=== PATIENT | female | born 1935 | race Caucasian/White ===

== ENCOUNTER 2021-12-31 17:00 | Inpatient (IN) | payer OTHER, BC ==
[2021-12-31] MEDS ORDERED: ACETAMINOPHEN 1000 MG/100 ML BAG IVPB ONE (17:44)
[2021-12-31] MEDS ORDERED: ACETAMINOPHEN INJECTION 100 ML IVPB ONE (18:12)
[2021-12-31] MEDS ORDERED: DEXAMETHASONE SOD PHOSPHATE 4 MG/1 ML VIAL IVPUSH ONE (18:51)
[2021-12-31 19:19] LABS: VENOUS BASE EXCESS 0.8 mmol/L (-2-2); VENOUS O2 SATURATION 80.8 % (70-80); VENOUS PCO2 40.6 mmHg (38-52); VENOUS PH 7.414 (7.310-7.410)
[2021-12-31 19:21] LABS: EPI CELLS 27 /uL (0-25.1); HYALINE CASTS 1 /uL (0-3.1); PH,URINE 6.5 (5.0-8.0); URINE APPEARANCE CLEAR; URINE BACTERIA 41 /uL (0-1359); URINE BILIRUBIN NEGATIVE (NEGATIVE); URINE COLOR YELLOW; URINE GLUCOSE (UA) NEGATIVE (NEGATIVE); URINE KETONE NEGATIVE (NEGATIVE); URINE LEUK ESTERASE NEGATIVE (NEGATIVE); URINE NITRITE NEGATIVE (NEGATIVE); URINE PROTEIN 2+ (NEGATIVE); URINE RBC 136 /uL (0-23.9); URINE WBC 21 /uL (0-25.8)
[2021-12-31 19:22] LABS: BASO % 0.3 % (0-2.0); HEMATOCRIT 44.3 % (32.4-45.2); HEMOGLOBIN 14.8 GM/dL (10.7-15.3); INR 1.6 (0.83-1.09); LYMPH % 14.2 % (8-40); MCH 30.3 pg (25.7-33.7); MCHC 33.4 g/dl (32.0-36.0); MEAN CELL VOLUME 90.7 fl (80-96); MEAN PLT VOLUME 8.4 fl (7.5-11.1); MONO % 13.9 % (3.8-10.2); NEUT % 71.6 % (42.8-82.8); PLATELET COUNT 133 10^3/uL (134-434); PROTHROMBIN TIME (PATIENT) 18.5 SEC (9.7-13.0); RBC 4.89 M/mm3 (3.60-5.2); RDW 14.4 % (11.6-15.6); WHITE BLOOD COUNT 4.2 K/mm3 (4.0-10.0)
[2021-12-31] MEDS ORDERED: DEXAMETHASONE SOD PHOSPHATE 10 MG/1 ML VIAL ONE (19:24)
[2021-12-31 19:25] LABS: ACTIVATED PTT 39.5 SECONDS (25.2-36.5)
[2021-12-31 19:36] LABS: CALCIUM 8.3 mg/dL (8.5-10.1)
[2021-12-31 19:37] LABS: ALBUMIN 3.5 g/dl (3.4-5.0); BLOOD UREA NITROGEN 20.6 mg/dL (7-18)
[2021-12-31 19:39] LABS: BILIRUBIN,DIRECT 0.2 mg/dL (0.0-0.2)
[2021-12-31 19:40] LABS: CREATININE 0.7 mg/dL (0.55-1.3)
[2021-12-31 19:41] LABS: BILIRUBIN,TOTAL 0.6 mg/dL (0.2-1); TOT PROT 7.8 g/dl (6.4-8.2)
[2021-12-31 21:04] LABS: MAGNESIUM 2.5 mg/dL (1.8-2.4)
[2021-12-31 21:35] LABS: ARTERIAL BLD GAS O2 SATURATION 97.9 % (95-98); ARTERIAL BLOOD GAS BASE EXCESS 0.6 mmol/L (-2-2); ARTERIAL BLOOD GAS PO2 110.6 mmHg (80-100); ARTERIAL BLOOD GAS pH 7.366 (7.350-7.450)
[2021-12-31 21:36] LABS: ALLENS TEST POSITIVE
[2022-01-01 08:15] LABS: BASO % 0.1 % (0-2.0); HEMATOCRIT 48.6 % (32.4-45.2); HEMOGLOBIN 16.2 GM/dL (10.7-15.3); MCH 30.4 pg (25.7-33.7); MCHC 33.3 g/dl (32.0-36.0); MEAN CELL VOLUME 91.3 fl (80-96); MEAN PLT VOLUME 8.3 fl (7.5-11.1); MONO % 9.9 % (3.8-10.2); PLATELET COUNT 119 10^3/uL (134-434); RBC 5.33 M/mm3 (3.60-5.2); WHITE BLOOD COUNT 8.5 K/mm3 (4.0-10.0)
[2022-01-01 08:31] LABS: BLOOD UREA NITROGEN 20.8 mg/dL (7-18); CALCIUM 8.9 mg/dL (8.5-10.1)
[2022-01-01 08:32] LABS: ALBUMIN 3.5 g/dl (3.4-5.0)
[2022-01-01 08:35] LABS: CREATININE 0.7 mg/dL (0.55-1.3)
[2022-01-01 08:37] LABS: BILIRUBIN,TOTAL 0.6 mg/dL (0.2-1)
[2022-01-01] MEDS ORDERED: DEXAMETHASONE SOD PHOSPHATE 10 MG/1 ML VIAL ONE (09:05)
[2022-01-01] MEDS ORDERED: ENOXAPARIN NA (PORCINE) 40 MG/0.4 ML DISP.SYRIN SQ ONE (09:06)
[2022-01-01] MEDS: DEXAMETHASONE SOD PHOSPHATE 10 MG/1 ML VIAL IVPUSH SCH (09:40)
[2022-01-01] MEDS: D5-1/2NS+10 MEQ KCL - 10 MEQ/1,000 ML INFUS.BAG IV SCH ×2 (09:40→21:58)
[2022-01-01] MEDS: ENOXAPARIN NA (PORCINE) 40 MG/0.4 ML DISP.SYRIN SQ SCH (09:40)
[2022-01-01] MEDS: ASCORBIC ACID 500 MG TABLET (FP) PO SCH ×2 (09:41→21:58)
[2022-01-01] MEDS: CHOLECALCIFEROL (VIT D3) 1,000 UNIT (25 MCG) TABLET PO SCH (09:41)
[2022-01-01] MEDS ORDERED: REMDESIVIR 200 MG in SODIUM CHLORIDE 250 ML IVPB ONE (10:00)
[2022-01-01] MEDS ORDERED: WARFARIN NA 2 MG TABLET PO SCH (18:00)
[2022-01-02] MEDS: D5-1/2NS+10 MEQ KCL - 10 MEQ/1,000 ML INFUS.BAG IV SCH ×3 (10:59→13:50)
[2022-01-02] MEDS: DEXAMETHASONE SOD PHOSPHATE 10 MG/1 ML VIAL IVPUSH SCH (11:00)
[2022-01-02] MEDS: ASCORBIC ACID 500 MG TABLET (FP) PO SCH ×2 (11:01→21:16)
[2022-01-02] MEDS: ENOXAPARIN NA (PORCINE) 40 MG/0.4 ML DISP.SYRIN SQ SCH (11:01)
[2022-01-02] MEDS: CHOLECALCIFEROL (VIT D3) 1,000 UNIT (25 MCG) TABLET PO SCH (11:01)
[2022-01-02] MEDS: REMDESIVIR 100 MG in SODIUM CHLORIDE 250 ML IVPB SCH (11:02)
[2022-01-02 13:19] LABS: INR 2.42 (0.83-1.09); PROTHROMBIN TIME (PATIENT) 28.1 SEC (9.7-13.0)
[2022-01-02 13:25] LABS: HEMATOCRIT 45.1 % (32.4-45.2); HEMOGLOBIN 15.2 GM/dL (10.7-15.3); MCH 30.2 pg (25.7-33.7); MCHC 33.7 g/dl (32.0-36.0); MEAN CELL VOLUME 89.7 fl (80-96); MEAN PLT VOLUME 8.1 fl (7.5-11.1); PLATELET COUNT 116 10^3/uL (134-434); RBC 5.03 M/mm3 (3.60-5.2); RDW 13.9 % (11.6-15.6); WHITE BLOOD COUNT 3.9 K/mm3 (4.0-10.0)
[2022-01-02 13:54] LABS: CALCIUM 8.3 mg/dL (8.5-10.1)
[2022-01-02 13:55] LABS: BLOOD UREA NITROGEN 18.1 mg/dL (7-18)
[2022-01-02 13:58] LABS: CREATININE 0.7 mg/dL (0.55-1.3)
[2022-01-02 13:59] LABS: BILIRUBIN,TOTAL 0.5 mg/dL (0.2-1); TOT PROT 7.2 g/dl (6.4-8.2)
[2022-01-02] MEDS ORDERED: WARFARIN NA 1 MG TABLET PO SCH (18:00)
[2022-01-03] MEDS: D5-1/2NS+10 MEQ KCL - 10 MEQ/1,000 ML INFUS.BAG IV SCH ×4 (01:06→22:59)
[2022-01-03] MEDS: PIPERACILLIN/TAZOB 3.375 GM 3.375 GM in DEXTROSE 5%-WATER - 50 ML IVPB SCH ×2 (02:30→18:19)
[2022-01-03] MEDS ORDERED: ACETAMINOPHEN 325 MG TABLET (FP) PO PRN (08:35)
[2022-01-03] MEDS ORDERED: ACETAMINOPHEN 650 MG SUPP.RECT RC ONE (09:30)
[2022-01-03 11:02] LABS: INR 2.74 (0.83-1.09); PROTHROMBIN TIME (PATIENT) 31.8 SEC (9.7-13.0)
[2022-01-03] MEDS: REMDESIVIR 100 MG in SODIUM CHLORIDE 250 ML IVPB SCH (11:12)
[2022-01-03] MEDS: DEXAMETHASONE SOD PHOSPHATE 10 MG/1 ML VIAL IVPUSH SCH (11:14)
[2022-01-03] MEDS: ENOXAPARIN NA (PORCINE) 40 MG/0.4 ML DISP.SYRIN SQ SCH (12:45)
[2022-01-03] MEDS: ASCORBIC ACID 500 MG TABLET (FP) PO SCH ×2 (12:45→22:06)
[2022-01-03] MEDS: CHOLECALCIFEROL (VIT D3) 1,000 UNIT (25 MCG) TABLET PO SCH (12:46)
[2022-01-03 13:23] LABS: HEMATOCRIT 43.5 % (32.4-45.2); HEMOGLOBIN 14.8 GM/dL (10.7-15.3); LYMPH % 10.9 % (8-40); MCH 30.2 pg (25.7-33.7); MEAN PLT VOLUME 8.4 fl (7.5-11.1); MONO % 7.7 % (3.8-10.2); NEUT % 81.4 % (42.8-82.8); PLATELET COUNT 120 10^3/uL (134-434); RBC 4.89 M/mm3 (3.60-5.2); RDW 13.8 % (11.6-15.6); WHITE BLOOD COUNT 5.4 K/mm3 (4.0-10.0)
[2022-01-03 13:44] LABS: ALBUMIN 2.5 g/dl (3.4-5.0); CALCIUM 8.1 mg/dL (8.5-10.1)
[2022-01-03 13:45] LABS: BLOOD UREA NITROGEN 20.7 mg/dL (7-18)
[2022-01-03 13:47] LABS: CREATININE 0.7 mg/dL (0.55-1.3)
[2022-01-03 13:49] LABS: BILIRUBIN,TOTAL 0.6 mg/dL (0.2-1); TOT PROT 6.2 g/dl (6.4-8.2)
[2022-01-03] MEDS ORDERED: DEXTROSE 5%-WATER - 50 ML IVPB ONE ×2 (14:36→17:56)
[2022-01-03] MEDS ORDERED: PIPERACILLIN/TAZOBACTAM 3.375 GM VIAL IVPB ONE ×2 (14:36→17:56)
[2022-01-03] MEDS ORDERED: KCL 10 MEQ IVPB 10 MEQ/100 ML INFUS.BAG IVPB SCH (15:00)
[2022-01-04] MEDS ORDERED: DEXTROSE 5%-WATER - 50 ML IVPB ONE ×3 (02:02→17:23)
[2022-01-04] MEDS ORDERED: PIPERACILLIN/TAZOBACTAM 3.375 GM VIAL IVPB ONE ×3 (02:02→17:23)
[2022-01-04] MEDS: PIPERACILLIN/TAZOB 3.375 GM 3.375 GM in DEXTROSE 5%-WATER - 50 ML IVPB SCH ×3 (03:15→17:33)
[2022-01-04] MEDS: REMDESIVIR 100 MG in SODIUM CHLORIDE 250 ML IVPB SCH (11:14)
[2022-01-04] MEDS: ENOXAPARIN NA (PORCINE) 60 MG/0.6 ML DISP.SYRIN SQ SCH ×2 (11:14→22:12)
[2022-01-04] MEDS: DEXAMETHASONE SOD PHOSPHATE 10 MG/1 ML VIAL IVPUSH SCH (11:15)
[2022-01-04] MEDS: D5-1/2NS+10 MEQ KCL - 10 MEQ/1,000 ML INFUS.BAG IV SCH (17:33)
[2022-01-05] MEDS ORDERED: DEXTROSE 5%-WATER - 50 ML IVPB ONE ×3 (01:48→18:54)
[2022-01-05] MEDS ORDERED: PIPERACILLIN/TAZOBACTAM 3.375 GM VIAL IVPB ONE ×3 (01:48→18:54)
[2022-01-05] MEDS: PIPERACILLIN/TAZOB 3.375 GM 3.375 GM in DEXTROSE 5%-WATER - 50 ML IVPB SCH ×3 (01:55→19:13)
[2022-01-05] MEDS: DEXAMETHASONE SOD PHOSPHATE 10 MG/1 ML VIAL IVPUSH SCH (09:57)
[2022-01-05] MEDS: ENOXAPARIN NA (PORCINE) 60 MG/0.6 ML DISP.SYRIN SQ SCH (09:57)
[2022-01-05] MEDS: REMDESIVIR 100 MG in SODIUM CHLORIDE 250 ML IVPB SCH (09:58)
[2022-01-05 10:54] LABS: HEMATOCRIT 48.2 % (32.4-45.2); HEMOGLOBIN 16.2 GM/dL (10.7-15.3); MCH 29.8 pg (25.7-33.7); MCHC 33.7 g/dl (32.0-36.0); MEAN CELL VOLUME 88.4 fl (80-96); MEAN PLT VOLUME 8.6 fl (7.5-11.1); PLATELET COUNT 151 10^3/uL (134-434); RBC 5.45 M/mm3 (3.60-5.2); RDW 14.2 % (11.6-15.6); WHITE BLOOD COUNT 11.5 K/mm3 (4.0-10.0)
[2022-01-05 11:02] LABS: PROTHROMBIN TIME (PATIENT) 63.4 SEC (9.7-13.0)
[2022-01-05 11:26] LABS: CALCIUM 8.9 mg/dL (8.5-10.1)
[2022-01-05 11:27] LABS: ALBUMIN 2.6 g/dl (3.4-5.0); BLOOD UREA NITROGEN 32.1 mg/dL (7-18)
[2022-01-05 11:30] LABS: CREATININE 1.3 mg/dL (0.55-1.3)
[2022-01-05 11:31] LABS: TOT PROT 6.7 g/dl (6.4-8.2)
[2022-01-05 11:32] LABS: BILIRUBIN,TOTAL 0.9 mg/dL (0.2-1)
[2022-01-05 11:34] LABS: INR 5.4 (0.83-1.09)
[2022-01-05 13:02] VITALS: BMI 17.7
[2022-01-05] MEDS: D5-1/2NS+10 MEQ KCL - 10 MEQ/1,000 ML INFUS.BAG IV SCH (19:15)
[2022-01-06] MEDS: D5-1/2NS+10 MEQ KCL - 10 MEQ/1,000 ML INFUS.BAG IV SCH (00:46)
[2022-01-06] MEDS ORDERED: DEXTROSE 5%-WATER - 50 ML IVPB ONE ×3 (03:39→17:47)
[2022-01-06] MEDS ORDERED: PIPERACILLIN/TAZOBACTAM 3.375 GM VIAL IVPB ONE ×3 (03:39→17:47)
[2022-01-06] MEDS: PIPERACILLIN/TAZOB 3.375 GM 3.375 GM in DEXTROSE 5%-WATER - 50 ML IVPB SCH ×3 (03:51→18:02)
[2022-01-06 09:11] LABS: PROTHROMBIN TIME (PATIENT) 92.8 SEC (9.7-13.0)
[2022-01-06 09:31] LABS: ALBUMIN 2.2 g/dl (3.4-5.0); BLOOD UREA NITROGEN 35.2 mg/dL (7-18); CALCIUM 7.7 mg/dL (8.5-10.1)
[2022-01-06 09:34] LABS: CREATININE 1.3 mg/dL (0.55-1.3)
[2022-01-06 09:36] LABS: BILIRUBIN,TOTAL 0.7 mg/dL (0.2-1); TOT PROT 5.5 g/dl (6.4-8.2)
[2022-01-06 09:59] LABS: INR 7.9 (0.83-1.09)
[2022-01-06] MEDS: DEXAMETHASONE SOD PHOSPHATE 10 MG/1 ML VIAL IVPUSH SCH (10:07)
[2022-01-06] MEDS ORDERED: PHYTONADIONE 10 MG/1 ML AMP SQ ONE (12:18)
[2022-01-06] MEDS ORDERED: D5-1/3NS+40 MEQ KCL - 40 MEQ/1,000 ML INFUS.BAG IV SCH (12:30)
[2022-01-06] MEDS ORDERED: 1/3 NS IV SCH ×2 (17:45)
[2022-01-06] MEDS ORDERED: POTASSIUM CHLORIDE IV SCH ×2 (17:45)
[2022-01-06] MEDS ORDERED: DEXTROSE 5% IV SCH ×2 (17:45)
[2022-01-06] MEDS: AMINO ACIDS 4.25%/D5W 1,000 ML IV SCH (18:00)
[2022-01-06] MEDS: POTASSIUM CHLORIDE 20 MEQ in DEXTROSE 5%-1/3 NS - 500 ML IV SCH ×2 (19:05→23:30)
[2022-01-07] MEDS ORDERED: PIPERACILLIN/TAZOBACTAM 3.375 GM VIAL IVPB ONE ×3 (02:02→17:21)
[2022-01-07] MEDS ORDERED: DEXTROSE 5%-WATER - 50 ML IVPB ONE ×3 (02:03→17:21)
[2022-01-07] MEDS: PIPERACILLIN/TAZOB 3.375 GM 3.375 GM in DEXTROSE 5%-WATER - 50 ML IVPB SCH ×3 (03:05→18:11)
[2022-01-07] MEDS: POTASSIUM CHLORIDE 20 MEQ in DEXTROSE 5%-1/3 NS - 500 ML IV SCH ×4 (08:18→18:12)
[2022-01-07] MEDS: DEXAMETHASONE SOD PHOSPHATE 10 MG/1 ML VIAL IVPUSH SCH (11:16)
[2022-01-07] MEDS: AMINO ACIDS 4.25%/D5W 1,000 ML IV SCH (12:22)
[2022-01-07 15:24] LABS: INR 2.52 (0.83-1.09); PROTHROMBIN TIME (PATIENT) 29.3 SEC (9.7-13.0)
[2022-01-08] MEDS: POTASSIUM CHLORIDE 20 MEQ in DEXTROSE 5%-1/3 NS - 500 ML IV SCH ×5 (00:42→20:00)
[2022-01-08] MEDS ORDERED: DEXTROSE 5%-WATER - 50 ML IVPB ONE ×3 (01:18→17:44)
[2022-01-08] MEDS ORDERED: PIPERACILLIN/TAZOBACTAM 3.375 GM VIAL IVPB ONE ×3 (01:18→17:44)
[2022-01-08] MEDS: PIPERACILLIN/TAZOB 3.375 GM 3.375 GM in DEXTROSE 5%-WATER - 50 ML IVPB SCH ×3 (01:48→18:16)
[2022-01-08 07:02] VITALS: RESP 16
[2022-01-08] MEDS: DEXAMETHASONE SOD PHOSPHATE 10 MG/1 ML VIAL IVPUSH SCH (10:24)
[2022-01-08] MEDS: AMINO ACIDS 4.25%/D5W 1,000 ML IV SCH ×2 (13:20→14:41)
[2022-01-08 13:54] LABS: INR 1.92 (0.83-1.09); PROTHROMBIN TIME (PATIENT) 22.2 SEC (9.7-13.0)
[2022-01-09] MEDS: POTASSIUM CHLORIDE 20 MEQ in DEXTROSE 5%-1/3 NS - 500 ML IV SCH ×4 (00:49→18:54)
[2022-01-09] MEDS ORDERED: PIPERACILLIN/TAZOBACTAM 3.375 GM VIAL IVPB ONE ×2 (01:03→10:08)
[2022-01-09] MEDS ORDERED: DEXTROSE 5%-WATER - 50 ML IVPB ONE ×2 (01:03→10:08)
[2022-01-09] MEDS: PIPERACILLIN/TAZOB 3.375 GM 3.375 GM in DEXTROSE 5%-WATER - 50 ML IVPB SCH ×3 (01:39→18:54)
[2022-01-09] MEDS: DEXAMETHASONE SOD PHOSPHATE 10 MG/1 ML VIAL IVPUSH SCH (10:21)
[2022-01-09] MEDS: AMINO ACIDS 4.25%/D5W 1,000 ML IV SCH (12:46)
[2022-01-09 14:44] LABS: INR 2.35 (0.83-1.09); PROTHROMBIN TIME (PATIENT) 27.3 SEC (9.7-13.0)
[2022-01-09 15:35] VITALS: BP 108/56; PULSE 74; TEMP 98.2
== END 2022-01-09 19:25 | disposition expired | DRG 177 ==
LOC: JER 17:00 → JERBED 20:04 → J8W 01-01 10:00
PROVIDERS: ADMIT Internal Medicine; ATTEND Internal Medicine
PROC: XW033E5 Introduction of Remdesivir Anti-infective into Peripheral Vein, Percutaneous Approach, New Technology Group 5 (ICD-10-PCS; principal; 2021-12-31)
DX: U07.1 COVID-19 (principal); R53.2 Functional quadriplegia; G93.41 Metabolic encephalopathy; J12.82 Pneumonia due to coronavirus disease 2019; J96.01 Acute respiratory failure with hypoxia; R64 Cachexia; Z68.1 Body mass index [BMI] 19.9 or less, adult; I10 Essential (primary) hypertension; F03.90 Unspecified dementia, unspecified severity, without behavioral disturbance, psychotic disturbance, mood disturbance, and anxiety; R63.0 Anorexia; E86.0 Dehydration; Z74.01 Bed confinement status; I48.0 Paroxysmal atrial fibrillation
CPT/HCPCS: 0241U-QW; 36415; 36600; 70450-TC; 71045-TC-FY; 80053; 81003; 82248; 82728; 82803; 83605; 83615; 83735; 85025; 85027; 85379; 85610; 85730; 86140; 87040; 87086; 87186; 93005; 93010; 99285-25; C9399; J1100